=== PATIENT | female | born 1995 | race Caucasian/White ===

== ENCOUNTER 2017-04-10 15:32 | Emergency (ER) | payer OTHER ==
[~2017-04-10] VITALS: Ht 160 cm; Wt 67.0 kg
[2017-04-10 15:42] VITALS: BP 125/75; PULSE 111; RESP 18; TEMP 99.4; O2SAT 100
[2017-04-10] MEDS ORDERED: ACETAMINOPHEN 500 MG CPLT PO ONE (16:30)
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
[2017-04-10] MEDS ORDERED: IBUP-232 PO (18:56)
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
== END 2017-04-10 19:07 | disposition home or self-care (01) ==
LOC: NEPD 15:32
DX: S16.1XXA Strain of muscle, fascia and tendon at neck level, initial encounter (principal); R51 Headache; J45.909 Unspecified asthma, uncomplicated; V43.52XA Car driver injured in collision with other type car in traffic accident, initial encounter
CPT/HCPCS: 72125; 73590; 84703; 99284